=== PATIENT | female | born 1975 | race African-American/Black ===

== ENCOUNTER 2021-09-17 21:03 | Emergency (ER) | payer MEDICARE, OTHER ==
[~2021-09-17] VITALS: Ht 165.1 cm; Wt 81.6 kg
--- NOTE | 2021-09-17 23:03 | NUR ---
URINE COLLECTED AND SENT TO LAB
--- NOTE | 2021-09-17 23:03 | NUR ---
COVID SWAB DONE AND SENT TO LAB
[2021-09-17 23:55] LABS: BASOPHILS # (AUTO) 0.1 K/uL (0.0-0.2); BASOPHILS % (AUTO) 0.5 % (0.0-2.0); EOSINOPHILS % (AUTO) 3.4 % (0.0-6.0); HEMATOCRIT 33 % (33-45); HEMOGLOBIN 10.3 g/dL (11.5-14.8); LYMPHOCYTES # (AUTO) 4.1 K/uL (0.8-4.8); LYMPHOCYTES % (AUTO) 36.6 % (20.0-44.0); MEAN CORPUSCULAR HGB CONC 32 g/dl (31.0-36.0); MEAN CORPUSCULAR VOLUME 82 fL (82-100); MONOCYTES # (AUTO) 0.7 K/uL (0.1-1.30); MONOCYTES % (AUTO) 6.3 % (2.0-12.0); NEUTROPHILS % (AUTO) 53.2 % (43.0-81.0); PLATELET COUNT (AUTO) 376 K/uL (150-450); RED BLOOD CELL COUNT(AUTO) 3.99 MIL/uL (4.0-5.2); WHITE BLOOD COUNT (AUTO) 11.3 K/uL (4.3-11.0)
[2021-09-18 00:36] LABS: ALANINE AMINOTRANSFERASE 37 U/L (12-78); ALBUMIN 3.6 g/dL (3.4-5.0); ALCOHOL, BLOOD < 3 mg/dL (0-0); ALKALINE PHOSPHATASE 82 U/L (46-116); ASPARTATE AMINOTRANSFERASE 16 U/L (15-37); BILIRUBIN,DIRECT 0.1 mg/dL (0.0-0.2); BILIRUBIN,TOTAL 0.2 mg/dL (0.2-1.0); CALCIUM, SERUM 9.6 mg/dL (8.5-10.1); CARBON DIOXIDE 31 mmol/L (21-32); CHLORIDE 103 mmol/L (98-107); CREATININE 0.8 mg/dL (0.6-1.3); GLUCOSE 100 mg/dL (74-106); POTASSIUM 3.2 mmol/L (3.5-5.1); SODIUM SERUM 139 mmol/L (136-145); TOTAL PROTEIN, SERUM 7.7 g/dL (6.4-8.2); UREA NITROGEN, BLOOD 16 mg/dL (7-18)
[2021-09-18 00:54] LABS: ACETAMINOPHEN < 2 ug/ml (10-30)
[2021-09-18 01:01] LABS: BILIRUBIN,URINE NEGATIVE (NEGATIVE); COLOR,URINE YELLOW (YELLOW); LEUKOCYTE ESTERASE ,URINE NEGATIVE (NEGATIVE); NITRITE, URINE NEGATIVE (NEGATIVE); PROTEIN,URINE NEGATIVE (NEGATIVE); UGLUCOSE NEGATIVE (NEGATIVE); UROBILINOGEN,URINE 0.2 EU/dL (0.2)
[2021-09-18] MEDS ORDERED: POTASSIUM CHLORIDE 20 MEQ TAB.PRT.SR PO ONE ×2 (03:00→03:24)
--- NOTE | 2021-09-18 05:24 | NUR ---
CLINICALS SENT TO [facility]
--- NOTE | 2021-09-18 08:10 | NUR ---
FAXED HCG RESULT NEGATIVE (-) TO [facility].
--- NOTE | 2021-09-18 08:12 | NUR ---
BREAKFAST TRAY PROVIDED. TOLERATED WELL
--- NOTE | 2021-09-18 08:31 | NUR ---
CALLED INTAKE AWAITING FEEDBACK.
--- NOTE | 2021-09-18 13:37 | NUR ---
PT ACCEPTED AT [facility] BY DR KIM Duff, RN FOR REPORT [phone]
[2021-09-18 13:45] VITALS: BP 120/72
--- NOTE | 2021-09-18 14:35 | NUR ---
[facility] TRANSPORT AT BEDSIDE FOR MANAGED CARE PROVIDER.
== END 2021-09-18 14:36 ==
LOC: ER 21:08
DX: R45.850 Homicidal ideations (principal); F41.9 Anxiety disorder, unspecified; Z20.822 Contact with and (suspected) exposure to COVID-19; Z88.0 Allergy status to penicillin; Z88.2 Allergy status to sulfonamides
CPT/HCPCS: 36415; 80048-TC; 80076-TC; 84703-TC; 85025-TC; C9803; G0480

== ENCOUNTER 2021-10-22 19:03 | Emergency (ER) | payer MEDICARE, OTHER ==
[~2021-10-22] VITALS: Ht 165.1 cm; Wt 83.5 kg
[2021-10-22 19:49] LABS: BASOPHILS # (AUTO) 0.1 K/uL (0.0-0.2); BASOPHILS % (AUTO) 0.7 % (0.0-2.0); EOSINOPHILS % (AUTO) 3.4 % (0.0-6.0); HEMATOCRIT 32 % (33-45); HEMOGLOBIN 10.5 g/dL (11.5-14.8); LYMPHOCYTES # (AUTO) 3.3 K/uL (0.8-4.8); MEAN CORPUSCULAR HGB CONC 33 g/dl (31.0-36.0); MEAN CORPUSCULAR VOLUME 83 fL (82-100); MONOCYTES # (AUTO) 0.6 K/uL (0.1-1.30); MONOCYTES % (AUTO) 7.1 % (2.0-12.0); NEUTROPHILS # (AUTO) 4.4 K/uL (1.8-8.9); NEUTROPHILS % (AUTO) 50.8 % (43.0-81.0); PLATELET COUNT (AUTO) 398 K/uL (150-450); WHITE BLOOD COUNT (AUTO) 8.6 K/uL (4.3-11.0)
[2021-10-22 20:04] LABS: ACETAMINOPHEN < 2 ug/ml (10-30); ALANINE AMINOTRANSFERASE 38 U/L (12-78); ALBUMIN 4.4 g/dL (3.4-5.0); ALCOHOL, BLOOD < 3 mg/dL (0-0); ALKALINE PHOSPHATASE 79 U/L (46-116); ASPARTATE AMINOTRANSFERASE 19 U/L (15-37); BILIRUBIN,DIRECT 0.1 mg/dL (0.0-0.2); BILIRUBIN,TOTAL 0.4 mg/dL (0.2-1.0); CALCIUM, SERUM 9.4 mg/dL (8.5-10.1); CARBON DIOXIDE 26 mmol/L (21-32); CHLORIDE 104 mmol/L (98-107); CREATININE 0.7 mg/dL (0.6-1.3); GLUCOSE 84 mg/dL (74-106); POTASSIUM 3.7 mmol/L (3.5-5.1); SODIUM SERUM 138 mmol/L (136-145); TOTAL PROTEIN, SERUM 8.1 g/dL (6.4-8.2); UREA NITROGEN, BLOOD 11 mg/dL (7-18)
--- NOTE | 2021-10-22 20:09 | NUR ---
BIBSELF C/O UNABLE TO SLEEP FOR DAYS AND SI WITH PLAN TO OD ON PILLS REQUESTING [facility] UMANZ[facility]. PATIENT ALERT AND ORIENTED X3. AMBULATORY WITH NON LABORED BREATHING IN BED 13 AWAITING MD [place].
--- NOTE | 2021-10-22 20:30 | NUR ---
URINE COLLECTED AND SENT TO LAB
--- NOTE | 2021-10-22 20:35 | NUR ---
ER BANQUET STEWARDESS @ BEDSIDE
[2021-10-22] MEDS ORDERED: OLANZAPINE 5 MG TABLET ONE (21:30)
[2021-10-22] MEDS ORDERED: OLANZAPINE 5 MG TABLET PO ONE (21:30)
[2021-10-22 21:39] LABS: BILIRUBIN,URINE NEGATIVE (NEGATIVE); COLOR,URINE YELLOW (YELLOW); LEUKOCYTE ESTERASE ,URINE NEGATIVE (NEGATIVE); NITRITE, URINE NEGATIVE (NEGATIVE); PH,URINE 7.5 (5.0-8.0); PROTEIN,URINE NEGATIVE (NEGATIVE); UGLUCOSE NEGATIVE (NEGATIVE); UROBILINOGEN,URINE 0.2 EU/dL (0.2)
--- NOTE | 2021-10-22 23:00 | NUR ---
FACESHEET AND CLINICALS FAXED TO [facility].
--- NOTE | 2021-10-23 08:52 | NUR ---
VIVIAN called [facility] TEL:[phone] regarding pending admission to [facility]. Teresa stated they do not hve clinicals. VIVIAN refaxed clincials to fax:[phone].
--- NOTE | 2021-10-23 09:51 | NUR ---
PER ANAND MAYO IS REQUESTING URINE TEST
--- NOTE | 2021-10-23 10:36 | NUR ---
FAXED URINE RESULT TO [facility].
--- NOTE | 2021-10-23 10:40 | NUR ---
SS Consult: SS Consult requested for SI. The pt. is a 46-year old Black female who presents to the ED from home [[address] [facility] [address]; [phone]] with complaints of Insomnia and SI with plan pt. OD on pills per EMR. The pt. has history of major depression, schizophrenia, bipolar per EMR. SW met with pt. at bedside. The pt. appears well-groomed is A&O X4 and makes good eye contact. Pt.'s is calm & cooperative throughout interview. Pt.'s mood is Euthymic. The pt. states she does not like where she lives as there always people doing drugs in the neighborhood, sometimes outside her window. Pt. venting about her mother being "too much" and pt. venting about neighbors who get mad at her for slamming doors and windows. Pt. denies HI and denies hallucinations. VIVIAN offered pt. voluntary admission to a psych facility for treatment and pt. is agreeable. VIVIAN explored pt.'s living situation. Pt. she lives alone at home[[address] [facility] [facility] [address]; [phone]]. VIVIAN explored pt.'s mental health Hx. Pt. states he has depression. Pt. states she has been diagnosed with Bipolar Disorder, & Major Depression and stated she is on Kn[place], Abilify & Celexa. Patient denies drug & ETOH use. Pt. states she is ambulatory and independent with all her ADL's. VIVIAN explored pt.'s support system. Pt. states her mother, Alesia Lopez. [phone] is her support system. pt. also states that she just enrolled with [facility] and their FSP program. Pt. states her CM, is Fernie Sandoval. Plan: VIVIAN referred pt. to [facility] [[address] [place] [address] FAX:[phone]] for inpatient psychiatric treatment. Pt. signed homeless waiver and it was placed in the chart. VIVIAN provided pt. with mental health resources and she accepted them : Counseling--Outpatient [place] [address] [facility], [place] [address] (Specializes in in-depth psychotherapy for emotional distress: anxiety, depression, interpersonal conflicts, life transitions, childhood abuse) [facility] [address] [place] [address] (Assist with solving problem marital difficulties, separation & divorce, aging parents, & grief, chronic & terminal illness) [facility] [address] [place] [address] (Deal with loss & grief, anxiety, marital difficulties) Homebound/Mental Health Services [address] [facility], [address] [place] [address] (Provide in-home mental services to people who are incapable of leaving their homes) [facility] [address] [place] [address] [facility] [address] [place], [place] [id number] PSYCHIATRIC OUTPATIENT SERVICES [facility] Partial Hospitalization and Intensive Outpatient Program (Managed Care and [place] Only) [address] [facility]. [facility] [address]; [phone] [facility] Partial Hospitalization and Outpatient Program [address] [facility]. [address] [place] [address]; [phone] [facility] [address] [facility]. [address] [place], [place] [phone] [facility] Partial Hospitalization and Outpatient [address] [place], [place] ; [phone] ;[phone] [facility] [address] [facility] [place] [address] Mental Health Services [facility] [address] [place] [address] Services: Outpatient therapy for children, teens, young adults, adults, older adults, and families; Psychiatric services, medication support [place] Crisis and Hotline Telephone Numbers: 24-Hour service unless stated [place] Mental Health/Crisis Line........[phone] Suicide Prevention Center (24 Hours).......[phone] Suicide Prevention Crisis Center.......[phone] (24 Hours) Alcoholics Anonymous (24 Hours)..........[phone] [place] Crisis Hotlines: Alcohol and Drug Helpline - Provides referrals to local facilities where adolescents and adults can seek help. Brief intervention. [facility] Helpline National [place] for [facility] Mentally Ill 8-307-516-GERALD National Youth Crisis Hotline [place] [facility]. Provides free information on specific disorders, referral directory to mental health providers, national directory of local mental health associations (M-F, 9-5 EST) National [place] of Mental Health Information Line: Provide sinformation and literature on mental illness by disorder-for professionals and general public.
--- NOTE | 2021-10-23 10:57 | NUR ---
VIVIAN received call from Teresa JULES stating that pt. has been accepted at [facility] under the care of Dr. Lemons and nurse to nurse report to be called in at [phone]. VIVIAN notified Jasiel Bahena.
[2021-10-23 11:16] VITALS: BP 131/78
--- NOTE | 2021-10-23 12:14 | NUR ---
THE PATIENT IS TRANSFERED TO [facility] IN STABLE CONDITION VIA ARRANGED TRANSPO.
== END 2021-10-23 12:15 ==
LOC: ER 19:12
DX: R45.851 Suicidal ideations (principal); F20.9 Schizophrenia, unspecified; F31.9 Bipolar disorder, unspecified; Z88.0 Allergy status to penicillin; Z88.2 Allergy status to sulfonamides; Z20.822 Contact with and (suspected) exposure to COVID-19
CPT/HCPCS: 36415; 80048-TC; 80076-TC; 84703-TC; 85025-TC; C9803; G0480

== ENCOUNTER 2021-11-07 12:36 | Emergency (ER) | payer MEDICARE, OTHER ==
[~2021-11-07] VITALS: Ht 165.1 cm; Wt 83.0 kg
--- NOTE | 2021-11-07 12:36 | NUR ---
PT BIB SELF C/O DEPRESSION AND SI NO SPECIFIC PLAN. REQUESTING VOLUNTARY PSYCH ADMISSION TO [facility]. PT IS AAOX4, NOT IN RESPIRATORY DISTRESS, V/S STABLE, KEPT RESTED AND COMFORTABLE. WILL CONTINUE TO MONITOR.
--- NOTE | 2021-11-07 12:55 | NUR ---
URINE SPECIMEN COLLECTED AND SENT TO LAB.
--- NOTE | 2021-11-07 13:09 | NUR ---
SECURITY AT BEDSIDE FOR WANDING.
[2021-11-07 13:25] LABS: BILIRUBIN,URINE NEGATIVE (NEGATIVE); COLOR,URINE YELLOW (YELLOW); LEUKOCYTE ESTERASE ,URINE NEGATIVE (NEGATIVE); NITRITE, URINE NEGATIVE (NEGATIVE); PROTEIN,URINE NEGATIVE (NEGATIVE); UGLUCOSE NEGATIVE (NEGATIVE); UROBILINOGEN,URINE 0.2 EU/dL (0.2)
--- NOTE | 2021-11-07 13:57 | NUR ---
SS Note: Pt. Is a 46-year-old female who demonstrates adequate insight to the reason for hospitalization. Per pt., she presents to the ER for medical clearance to go to [facility]. Pt. was oriented x3, alert, and cooperative. During interview, pt. was capable of following directions and appeared unkempt. Pt.'s speech was at a low rate and pt.'s mood was elevated. Pt. reported no hx of mental health, substance abuse, suicidal ideation, or homicidal ideation. Pt. denies paranoia, or delusions. Pt. reported having auditory hallucinations and visual hallucinations. SW explored pt.'s living situation. Per pt., she lives alone [[address] [place] [address]]. Pt. expressed that she wants voluntary psych admission. Plan: Will fax pt.'s clinicals over to [facility] once pt. is medically cleared.
[2021-11-07 14:04] LABS: BASOPHILS # (AUTO) 0.1 K/uL (0.0-0.2); BASOPHILS % (AUTO) 1.1 % (0.0-2.0); EOSINOPHILS % (AUTO) 3.5 % (0.0-6.0); HEMATOCRIT 31 % (33-45); HEMOGLOBIN 9.7 g/dL (11.5-14.8); LYMPHOCYTES % (AUTO) 47.7 % (20.0-44.0); MEAN CORPUSCULAR HGB CONC 32 g/dl (31.0-36.0); MEAN CORPUSCULAR VOLUME 84 fL (82-100); MONOCYTES # (AUTO) 0.8 K/uL (0.1-1.30); MONOCYTES % (AUTO) 9.8 % (2.0-12.0); NEUTROPHILS # (AUTO) 3.2 K/uL (1.8-8.9); NEUTROPHILS % (AUTO) 37.9 % (43.0-81.0); PLATELET COUNT (AUTO) 254 K/uL (150-450); RED BLOOD CELL COUNT(AUTO) 3.63 MIL/uL (4.0-5.2); WHITE BLOOD COUNT (AUTO) 8.4 K/uL (4.3-11.0)
[2021-11-07 14:08] LABS: CALCIUM, SERUM 8.6 mg/dL (8.5-10.1); CARBON DIOXIDE 21 mmol/L (21-32); CHLORIDE 106 mmol/L (98-107); CREATININE 0.6 mg/dL (0.6-1.3); GLUCOSE 91 mg/dL (74-106); SODIUM SERUM 136 mmol/L (136-145); UREA NITROGEN, BLOOD 14 mg/dL (7-18)
[2021-11-07 14:14] LABS: ALANINE AMINOTRANSFERASE 45 U/L (12-78); ALBUMIN 3.3 g/dL (3.4-5.0); ALCOHOL, BLOOD < 3 mg/dL (0-0); ALKALINE PHOSPHATASE 65 U/L (46-116); ASPARTATE AMINOTRANSFERASE 20 U/L (15-37); BILIRUBIN,TOTAL 0.1 mg/dL (0.2-1.0); TOTAL PROTEIN, SERUM 6.6 g/dL (6.4-8.2)
[2021-11-07 14:18] LABS: ACETAMINOPHEN 0 ug/ml (10-30)
--- NOTE | 2021-11-07 15:50 | NUR ---
Faxed clinicals over to [facility] [fax: [phone]]. Per Rony, he will see if pt. is eligible for [place] or [place]. [facility] is awaiting for feedback from detective supervisor.
--- NOTE | 2021-11-07 16:48 | NUR ---
PT GOT ACCEPTED TO [facility] UNDER THE CARE OF DR. BAE NUMBER FOR REPORT [phone] EXT. [phone]
--- NOTE | 2021-11-07 16:52 | NUR ---
CALLED [facility] AND [facility] BLS TRANSPORT ETA 1800
--- NOTE | 2021-11-07 18:30 | NUR ---
REPORT GIVEN TO [facility]
[2021-11-07 18:32] VITALS: BP 121/66
== END 2021-11-07 18:40 ==
LOC: ER 12:41
DX: R45.851 Suicidal ideations (principal); Z20.822 Contact with and (suspected) exposure to COVID-19; F25.9 Schizoaffective disorder, unspecified; Z88.0 Allergy status to penicillin; Z88.2 Allergy status to sulfonamides; Z88.8 Allergy status to other drugs, medicaments and biological substances
CPT/HCPCS: 36415; 80048-TC; 80076-TC; 85025-TC; C9803; G0480

== ENCOUNTER 2022-05-14 20:51 | Emergency (ER) | payer MEDICARE, OTHER ==
[~2022-05-14] VITALS: Ht 170.2 cm; Wt 81.6 kg
--- NOTE | 2022-05-14 21:21 | NUR ---
WAQAR C/O -SI/-HI WANTS VOL PSYCH ADMIT TO [facility]. PT A/OX4. TOLERATING R/A WELL WITH NO RESP DISRESS. AMBULATORY WITH STEADY GAIT. SAFETY MEASURES IN PLACE.
[2022-05-14 22:08] LABS: BASOPHILS # (AUTO) 0.1 K/uL (0.0-0.2); BASOPHILS % (AUTO) 1.2 % (0.0-2.0); EOSINOPHILS % (AUTO) 5.8 % (0.0-6.0); HEMATOCRIT 35 % (33-45); HEMOGLOBIN 10.8 g/dL (11.5-14.8); LYMPHOCYTES # (AUTO) 2.7 K/uL (0.8-4.8); LYMPHOCYTES % (AUTO) 27.7 % (20.0-44.0); MEAN CORPUSCULAR HGB CONC 31 g/dl (31.0-36.0); MEAN CORPUSCULAR VOLUME 87 fL (82-100); MONOCYTES # (AUTO) 0.7 K/uL (0.1-1.30); MONOCYTES % (AUTO) 7.5 % (2.0-12.0); NEUTROPHILS # (AUTO) 5.6 K/uL (1.8-8.9); NEUTROPHILS % (AUTO) 57.8 % (43.0-81.0); PLATELET COUNT (AUTO) 386 K/uL (150-450); RED BLOOD CELL COUNT(AUTO) 4.04 MIL/uL (4.0-5.2); WHITE BLOOD COUNT (AUTO) 9.7 K/uL (4.3-11.0)
[2022-05-14 22:25] LABS: BILIRUBIN,URINE NEGATIVE (NEGATIVE); COLOR,URINE YELLOW (YELLOW); LEUKOCYTE ESTERASE ,URINE NEGATIVE (NEGATIVE); NITRITE, URINE NEGATIVE (NEGATIVE); PH,URINE 5.5 (5.0-8.0); PROTEIN,URINE NEGATIVE (NEGATIVE); UGLUCOSE NEGATIVE (NEGATIVE); UROBILINOGEN,URINE 0.2 EU/dL (0.2)
[2022-05-14 22:25] LABS: ACETAMINOPHEN 0 ug/ml (10-30); ALANINE AMINOTRANSFERASE 49 U/L (12-78); ALBUMIN 3.7 g/dL (3.4-5.0); ALCOHOL, BLOOD < 3 mg/dL (0-0); ALKALINE PHOSPHATASE 89 U/L (46-116); ASPARTATE AMINOTRANSFERASE 19 U/L (15-37); BILIRUBIN,DIRECT 0.1 mg/dL (0.0-0.2); BILIRUBIN,TOTAL 0.2 mg/dL (0.2-1.0); CALCIUM, SERUM 8.8 mg/dL (8.5-10.1); CARBON DIOXIDE 28 mmol/L (21-32); CREATININE 0.6 mg/dL (0.6-1.3); GLUCOSE 91 mg/dL (74-106); TOTAL PROTEIN, SERUM 7.7 g/dL (6.4-8.2); UREA NITROGEN, BLOOD 11 mg/dL (7-18)
[2022-05-14 22:26] LABS: BACTERIA,URINE Rare /HPF (None Seen); SQUAMOUS EPITHELIAL CELL,UR Few /HPF (None Seen)
[2022-05-14 22:31] LABS: CHLORIDE 105 mmol/L (98-107); POTASSIUM 3.8 mmol/L (3.5-5.1); SODIUM SERUM 136 mmol/L (136-145)
--- NOTE | 2022-05-14 22:39 | NUR ---
WAQAR C/O -SI/-HI WANTS VOL PSYCH ADMIT TO SO [facility]. PT A/OX4. TOLERATING R/A WELL WITH NO RESP DISRESS. AMBULATORY WITH STEADY GAIT. SAFETY MEASURES IN PLACE.
--- NOTE | 2022-05-15 03:59 | NUR ---
clinicals fax so [facility] intake
--- NOTE | 2022-05-15 07:25 | NUR ---
RECEIVED PT FROM FROM NATALIE LOPEZ TO MALIK MONREAL
--- NOTE | 2022-05-15 09:00 | NUR ---
PT CALM AND COOPRATIVER NO SOB
--- NOTE | 2022-05-15 09:34 | NUR ---
RECEITING AND ASLEEPY NO PAIN
--- NOTE | 2022-05-15 10:26 | NUR ---
ACCEPTED AT [facility] UNDER DR. ALEXANDER [phone]
--- NOTE | 2022-05-15 10:29 | NUR ---
[facility] CALLED FOR TRANSPORT ETA 1200 PER [place].
--- NOTE | 2022-05-15 12:00 | NUR ---
PT VOLNTERY TRANSFER TO [facility] FOR SI/ HI
--- NOTE | 2022-05-15 12:32 | NUR ---
NEW ETA 20 MINS [facility].
[2022-05-15 13:20] VITALS: BP 131/83
--- NOTE | 2022-05-15 13:20 | NUR ---
PT TRANSFER BY KEVIN HAINES
--- NOTE | 2022-05-15 13:20 | NUR ---
HAND OFF Jessica ROBLERO WASTE MANAGEMENT RECYCLING TECHNICIAN TRANSFER TO [facility] [phone] VS STABLE
== END 2022-05-15 13:33 ==
LOC: ER 20:53
DX: R45.851 Suicidal ideations (principal); Z20.822 Contact with and (suspected) exposure to COVID-19; Z88.0 Allergy status to penicillin; Z88.2 Allergy status to sulfonamides
CPT/HCPCS: 36415; 80048-TC; 80076-TC; 81001; 84703-TC; 85025-TC; C9803; G0480